=== PATIENT | male | born 1965 | race American Indian/Alaskan Native ===

== ENCOUNTER 2019-02-24 07:05 | Emergency (ER) | payer MEDICAID ==
[2019-02-24] MEDS ORDERED: XYLOCAINE 1% MPF 5 mL INFILTRATI ONE (08:15)
[2019-02-24] MEDS ORDERED: IBUPROFEN PO ONE (08:15)
[2019-02-24] MEDS ORDERED: ROCEPHIN IM ONE (08:15)
--- NOTE | 2019-02-24 08:18 | Emergency Department Report ---
Abscess Boil HPI - HPI Chief Complaint: Wound/Laceration Stated Complaint: RT LEG LUMP W/PAIN Time Seen by Provider: 02/24/19 07:54 Duration: >1 Week Location: Lower Extremity Severity: Mild History: Yes Purulent Drainage, Yes Previous History, No Fever, No Pain, No Numbness, No Foreign Body, No Insect Bite HPI: 53 YO MALE COMES TO ER WITH A NON HEALING WOUND MID CALF OF RIGHT LEG. HE HAS HAD IT FOR OVER A YEAR. HE SAW URGENT CARE RECENTLY AND THEY PUT HIM ON CLARITAN AND PREDNISONE. Home Medications: Previous Rx's Medication Instructions Recorded Last Taken Type Ibuprofen [Motrin] 800 mg PO Q8HR PRN #30 tablet 02/24/19 Unknown Rx Silver Sulfadiazine [Ssd] 400 gm TP BID #1 each 02/24/19 Unknown Rx cephALEXin [Keflex] 500 mg PO Q12HR #20 cap 02/24/19 Unknown Rx Allergies/Adverse Reactions: Allergies Allergy/AdvReac Type Severity Reaction Status Date / Time Penicillins Allergy Unknown Verified 02/24/19 07:19 ED Review of Systems ROS: Stated complaint: RT LEG LUMP W/PAIN Other details as noted in HPI Comment: All other systems reviewed and negative ED Past Medical Hx - Past Medical History Previous Medical History?: Yes Hx Hypertension: Yes Additional medical history: arthritis - Surgical History Past Surgical History?: Yes Additional Surgical History: hip replacement - Family History Family history: no significant - Social History Smoking Status: Current Every Day Smoker Substance Use Type: None - Medications Home Medications: Home Medications Medication Instructions Recorded Confirmed Last Taken Type Ibuprofen [Motrin] 800 mg PO Q8HR PRN #30 tablet 02/24/19 Unknown Rx Silver Sulfadiazine [Ssd] 400 gm TP BID #1 each 02/24/19 Unknown Rx cephALEXin [Keflex] 500 mg PO Q12HR #20 cap 02/24/19 Unknown Rx ED Abscess Boil Physical Exam - Exam General: Vital signs noted. No distress. Alert and acting appropriately. Exam: Yes Normal Neurologic Exam, Yes Normal Circulation, No Tenderness, No Fluctuance, No Surrounding Cellulites/Erythema, No Lymphangitis, No Crepitation, No Heart Murmur Exam: PATCH OF SKIN RLE 6X6 INCHES. MOST MEDIAL PORTION IS RED AND INFLAMMED THE SURROUNDING AREA IS DARK DRY SKIN-PT STATES THAT PART GOT BETTER BUT THE RED AREA DID NOT. NO SWELLING. NO ABSCESS. NO DISTAL SWELLING. DP PLUS 2. NON DM. ED Course Vital Signs 02/24/19 07:14 Temperature 98.4 F Pulse Rate 78 Respiratory 20 Rate Blood Pressure 196/102 O2 Sat by Pulse 99 Oximetry Critical care attestation.: If time is entered above; I have spent that time in minutes in the direct care of this critically ill patient, excluding procedure time. ED Medical Decision Making - Medical Decision Making PT HAS PALP DP BILATERAL NO SWELLING OR EDEMA NEG HOMANS NO DM HTN SMOKER LLE WNL MEDICATED IN ER DC HOME WITH DC PLAN OF CARE INCLUDING PCP FOLLOW UP. WOUND ON PROX RLE JUST BELOW KNEE- DOES NOT APPEAR TO BE STASIS WOUND; NO HX PVD AND NO DM WOUND CARE PROVIDED Vital Signs 02/24/19 02/24/19 07:14 09:15 Temperature 98.4 F Pulse Rate 78 Respiratory 20 Rate Blood Pressure 196/102 Blood Pressure 182/95 [Left] O2 Sat by Pulse 99 Oximetry - Differential Diagnosis ABSCESS/CELLULITIS ED Disposition Clinical Impression: Cellulitis, Elevated blood pressure reading Disposition: DC-01 TO HOME OR SELFCARE Is pt being admited?: No Does the pt Need Aspirin: No Condition: Stable Instructions: Cellulitis (ED) Additional Instructions: meds as ordered today follow up with pcp referral below monitor your blood pressure it was high today trend over time and make sure it comes down. Prescriptions: cephALEXin [Keflex] 500 mg PO Q12HR #20 cap Ibuprofen [Motrin] 800 mg PO Q8HR PRN #30 tablet PRN Reason: Pain, Moderate (4-6) Silver Sulfadiazine [Ssd] 400 gm TP BID #1 each Referrals: [facility] [Outside] - 3-5 Days Time of Disposition: 08:15
[2019-02-24] MEDS ORDERED: THERMAZENE 50 GRAM TP ONE (09:00)
[2019-02-24 09:15] VITALS: BP 182/95
== END 2019-02-24 09:15 | disposition home or self-care (01) ==
LOC: ED 07:05
DX: L03.115 Cellulitis of right lower limb (principal); I10 Essential (primary) hypertension; F17.200 Nicotine dependence, unspecified, uncomplicated; Z98.890 Other specified postprocedural states; Z88.0 Allergy status to penicillin
CPT/HCPCS: 96372; 99282; J0696